=== PATIENT | male | born 1945 | race Caucasian/White ===

== ENCOUNTER 2018-10-13 06:04 | Day surgery (SDC) | payer BC ==
[2018-10-11 09:04] VITALS: BMI 29.6
[2018-10-13] MEDS ORDERED: Levofloxacin 500 mg/D5W 100 ml Premix Bag ONE (06:22)
--- NOTE | 2018-10-13 06:46 | RAD ---
KUB: INDICATIONS: Preop evaluation. COMPARISON: 09/17/2015 FINDINGS: There is bilateral nephrolithiasis. The extent of the renal stone burden has increased from the comp arison examination with numerous nonobstructing calculi involving the right kidney. The largest is s een near the region of the inferior pole, measuring approximately 7 mm. There is a 2 mm stone involv ing the superior pole of the left kidney. An additional suspected 2 mm stone is seen involving the i nferior pole of the left kidney. No suspicious calcification is seen along the expected course of th e renal collecting systems. Small phleboliths within the lower left hemipelvis are stable. The ayden l gas pattern is unobstructed. There is mild dextroscoliosis of the lumbar spine. IMPRESSION: Worsening bilateral nephrolithiasis. POS: BH
[2018-10-13] MEDS ORDERED: Fentanyl 100 MCG/2 ML VIAL ONE (07:18)
[2018-10-13] MEDS ORDERED: Iothalamate Meglumine 60% 50 ML VIAL FS ONE (08:20)
--- NOTE | 2018-10-13 11:00 | OP ---
DATE OF PROCEDURE: 10/13/2018 PREOPERATIVE DIAGNOSES: Right renal and right ureteral stone. POSTOPERATIVE DIAGNOSES: Right renal and bladder stone. PROCEDURES PERFORMED: Right extracorporeal shockwave lithotripsy, cystoscopy, right retrograde, and removal of bladder stone. ANESTHETIC: General. ESTIMATED BLOOD LOSS: Not recorded. FINDINGS: He had multiple stones in his kidneys, the larger one 7 to 8 mm in the lower pole was treated with about 2200 shocks and 300 shocks were given to a smaller one in the mid calyceal region. On this preoperative KUB, the right lower 3rd ureteral stone was not evident, but on fluoroscopy, we found that was in the bladder. So, after treating the right renal stones, we then did cystoscopy and found the stone and removed it intact and did a retrograde study showing no abnormality to the right ureter. No obstruction to the right ureter. DESCRIPTION OF PROCEDURE: After obtaining written and verbal consent from the patient documenting normal blood work and reviewing his preoperative KUB and after receiving IV Levaquin, he was taken to the operating suite. He was placed in the supine position on the treatment table. PlexiPulses were placed on his lower extremities and turned on. He was given a general anesthetic and oral obturator intubation. He was coupled to the lithotripsy unit. The stone was placed in treatment focal point. Shockwave therapy was commenced at a slow rate and a slow kV. After a couple of 100 shocks, a pause of 5 minutes was given. We then increased the rate up to level 4 and then for the last few 100 shocks alternate level 4, level 5 at 100 shocks each. At about 2200 shocks, we could not see any further stone in this region, so we did treat one of the other stones that was in the mid calyceal region with remaining 300 shocks. At this point, he was placed in the dorsal lithotomy position and sterilely prepped and draped for cystoscopy. This was done with a 22-[place] sheath and we used a 25-[place] sheath to be able to get this stone out of the bladder. The bladder was inspected with both the 30-degree and 70-degree lens. There was no evidence of urethral stricture. There was moderate to large prostatic lobes with a rather prominent median lobe. The bladder had a stone in it, but there was no tumor or foreign body or fistula. There were 2 ureteral orifices. Retrograde study was done with a 5-[place] Pollack catheter that was flushed with contrast and then injected up the right side that showed no evidence of any filling defects or obstruction to the right ureter. The bladder stone was grasped with a pair of alligator forceps and removed intact with the aid of a 25-[place] sheath. We did not place a catheter. The patient was taken out of the dorsal lithotomy position, awakened, extubated, taken by stretcher to recovery room. Job ID: [id number]
[2018-10-13] MEDS ORDERED: Dexamethasone 20 MG/5 ML VIAL ONE (16:03)
[2018-10-13] MEDS ORDERED: Ondansetron PF 4 MG/2 ML Vial ONE (16:03)
[2018-10-13] MEDS ORDERED: PROPOFOL 200 MG/20 ML VIAL ONE (16:03)
[2018-10-13] MEDS ORDERED: Lidocaine 1% PF 5 ML VIAL ONE (16:03)
== END 2018-10-13 11:46 | disposition home or self-care (01) ==
LOC: SDC 06:04
PROVIDERS: ATTEND Urology
PROC: 0TF3XZZ Fragmentation in Right Kidney Pelvis, External Approach (ICD-10-PCS; principal; 2018-10-13)
PROC: 0TCB8ZZ Extirpation of Matter from Bladder, Via Natural or Artificial Opening Endoscopic (ICD-10-PCS; principal; 2018-10-13)
DX: N20.0 Calculus of kidney (principal); N21.0 Calculus in bladder; Z79.899 Other long term (current) drug therapy
CPT/HCPCS: 74018; J1100; J1956; J2001; J2405; J2704; J3010

== ENCOUNTER 2018-11-07 17:01 | Emergency (ER) | payer BC ==
[2018-11-07] MEDS ORDERED: Ibuprofen 600 MG TAB ONE (17:20)
--- NOTE | 2018-11-07 17:34 | RAD ---
3 views of the left wrist: 11/07/2018 COMPARISON: None HISTORY: Fall, wrist injury FINDINGS: There is a nondisplaced transverse fracture at the base of the ulnar styloid. There is a co mminuted impacted distal left radial fracture with extension into the radiocarpal and distal radioulnar joint. There is mild anterior displacement of distal radial fracture fragments. No evidenc e for dislocation. There is degenerative change at the first carpometacarpal joint. Orthopedic consultation advised. IMPRESSION: Comminuted impacted intra-articular fracture of the distal left radius with an associated fracture at the base of the ulnar styloid.
== END 2018-11-07 18:23 | disposition home or self-care (01) ==
LOC: SCSER 17:01
DX: S52.572A Other intraarticular fracture of lower end of left radius, initial encounter for closed fracture (principal); S52.612A Displaced fracture of left ulna styloid process, initial encounter for closed fracture; E78.5 Hyperlipidemia, unspecified; E78.00 Pure hypercholesterolemia, unspecified; Z87.442 Personal history of urinary calculi; W17.89XA Other fall from one level to another, initial encounter
CPT/HCPCS: 29125

== ENCOUNTER 2018-11-10 09:27 | Day surgery (SDC) | payer BC ==
[2018-11-09 12:46] VITALS: BMI 28.1
[2018-11-10] MEDS ORDERED: Fentanyl 100 MCG/2 ML VIAL ONE ×2 (10:31→10:57)
--- NOTE | 2018-11-10 13:32 | RAD ---
TWO VIEWS OF THE LEFT WRIST: COMPARISON: 11/07/2018. HISTORY: Distal radius fracture status post ORIF. FINDINGS/IMPRESSION: Two limited intraoperative fluoroscopic views of the left wrist show the patient to be plate and scre w fixation of the distal radius fracture. An associated ulnar styloid fracture is seen. POS: TPC
--- NOTE | 2018-11-10 18:08 | OP ---
DATE OF PROCEDURE: 11/10/2018 OPERATION PERFORMED: Open reduction and internal fixation of left distal radius fracture. PREOPERATIVE DIAGNOSIS: Intra-articular left distal radius fracture with displacement. POSTOPERATIVE DIAGNOSIS: Intra-articular left distal radius fracture with displacement. COMPLICATIONS: None. ESTIMATED BLOOD LOSS: 50 mL. DIRECTOR ELECTRONICS: Jake Garcia. IMPLANT: Synthes volar distal radial plate with multiple locking and nonlocking screws. INDICATIONS: The patient fell and fractured his distal radius with shortening and displacement. He was indicated for open reduction and internal fixation of the distal radius to restore anatomic alignment and promote healing. Risks have been reviewed and he has elected to proceed with the operation. DESCRIPTION OF PROCEDURE: Mr. Huston was identified in the preoperative holding area. His correct extremity was marked. He was carried to the operating room. He was positioned supine. General anesthesia was induced. The left upper extremity was prepped and draped in sterile fashion. He was given intravenous antibiotics. At this point, we began the procedure with an FCR approach to the distal radius. We made an incision over the volar wrist, dissecting down to the FCR tendon sheath, which was opened. We then cleared the underlying pronator quadratus from the bone. We then identified the fracture site and cleared the soft tissues. We thoroughly irrigated. We then pulled length and reduced the fracture back into its anatomic position with a reduction clamp and K-wire. Next, we applied our volar distal radial plate. We placed a screw proximally as well as multiple locking screws distally. We finally placed our proximal screws. We took x-ray images, confirming plate placement and reduction. There were no complications. At this point, we thoroughly irrigated. We then closed in layers and placed a splint. The patient was taken to the recovery room in good condition. Job ID: [id number]
== END 2018-11-10 14:25 | disposition home or self-care (01) ==
LOC: SDC 09:27
PROVIDERS: ATTEND Orthopaedic Surgery
PROC: 3E0T3BZ Introduction of Anesthetic Agent into Peripheral Nerves and Plexi, Percutaneous Approach (ICD-10-PCS; principal; 2018-11-10)
PROC: 0PSJ04Z Reposition Left Radius with Internal Fixation Device, Open Approach (ICD-10-PCS; principal; 2018-11-10)
DX: S52.532A Colles' fracture of left radius, initial encounter for closed fracture (principal); Z79.899 Other long term (current) drug therapy; W01.0XXA Fall on same level from slipping, tripping and stumbling without subsequent striking against object, initial encounter
CPT/HCPCS: 76000; J0690; J3010

== ENCOUNTER 2021-11-21 09:07 | Outpatient (CLI) | payer MEDICARE, OTHER ==
[2021-11-21 10:23] LABS: Hemoglobin 14.9 g/dL (13.5-17.5); Mean Corpuscular HGB CONC 34.6 g/dL (32.0-36.0); Mean Corpuscular Hemoglobin 31.9 pg (27.0-33.0); Mean Corpuscular Volume 92.3 fl (81.2-95.1); Mean Platelet Volume 12.6 fl (7.4-10.4); Platelet Count 128 10x3/uL (150-450); Red Blood Cell (RBC) Count 4.67 10x6/uL (4.32-5.72); White Blood Cell (WBC) Count 5.5 10x3/uL (3.5-10.5)
[2021-11-21 10:36] LABS: Prothrombin Time 10.9 sec (9.5-12.1)
[2021-11-21 10:40] LABS: Anion Gap 14 mmol/L (10-20); BUN (Urea Nitrogen) 17 mg/dL (8.4-25.7); Calc. Creatinine Clearance 0 mL/min (70-130); Calcium 9.3 mg/dL (7.8-10.44); Carbon Dioxide 22 mmol/L (23-31); Chloride 107 mmol/L (98-107); Estimated GFR 87; Glucose 102 mg/dL (83-110); Potassium 4.3 mmol/L (3.5-5.1); Sodium 139 mmol/L (136-145)
== END 2021-11-21 09:08 | disposition home or self-care (01) ==
LOC: LABBT 09:07
PROVIDERS: ATTEND Urology
DX: Z01.812 Encounter for preprocedural laboratory examination (principal)
CPT/HCPCS: 80048; 85027; 85610; 85730; 87086

== ENCOUNTER 2021-11-25 06:26 | Day surgery (SDC) | payer MEDICARE, OTHER ==
[2021-11-21 11:15] VITALS: BMI 26.6
[2021-11-25] MEDS ORDERED: Iopamidol 0 ML ONE (08:38)
[2021-11-25] MEDS ORDERED: SUGAMMADEX SODIUM 200 MG/2 ML VIAL ONE (08:44)
[2021-11-25] MEDS ORDERED: fentaNYL Citrate/PF 100 MCG/2 ML SYRINGE ONE (08:44)
[2021-11-25] MEDS ORDERED: Sodium Chloride 0.9% 100 ML ONE (08:48)
[2021-11-25] MEDS ORDERED: CEFAZOLIN 2 GM VIAL ONE (08:48)
[2021-11-25] MEDS ORDERED: PROPOFOL 200 MG/20 ML VIAL ONE (09:01)
[2021-11-25] MEDS ORDERED: Ketorolac Tromethamine 30 MG/ML VIAL ONE (09:01)
[2021-11-25] MEDS ORDERED: Lidocaine 1% PF 5 ML VIAL ONE (09:01)
[2021-11-25] MEDS ORDERED: ePHEDrine 50 MG/ML VIAL ONE (09:01)
[2021-11-25] MEDS ORDERED: Dexamethasone 20 MG/5 ML VIAL ONE (09:01)
[2021-11-25] MEDS ORDERED: Ondansetron PF 4 MG/2 ML Vial ONE (09:01)
[2021-11-25] MEDS ORDERED: Rocuronium Bromide 10 MG/ML (10ML VIAL) ONE (09:01)
[2021-11-29 13:12] LABS: CA Oxalate Monohydrate 100 % (.); Color Brown (.); Stone Weight 414 mg (.)
== END 2021-11-25 11:34 | disposition home or self-care (01) ==
LOC: SDC 06:26
PROVIDERS: ATTEND Urology
PROC: 0TCB8ZZ Extirpation of Matter from Bladder, Via Natural or Artificial Opening Endoscopic (ICD-10-PCS; principal; 2021-11-25)
DX: N21.0 Calculus in bladder (principal); K21.9 Gastro-esophageal reflux disease without esophagitis; E78.00 Pure hypercholesterolemia, unspecified; Z79.899 Other long term (current) drug therapy; Z98.890 Other specified postprocedural states
CPT/HCPCS: 82365; 88300; J0690; J1100; J1885; J2405; J2704; J3490; Q9967

== ENCOUNTER 2023-02-05 16:36 | Inpatient (IN) | payer MEDICARE ==
[2023-02-05 18:04] VITALS: BMI 27.9
[2023-02-05] MEDS ORDERED: Nitroglycerin 0.4 MG TAB (25 Tab Bottle) SL PRN (18:31)
[2023-02-05] MEDS ORDERED: Acetaminophen 325 MG TAB PO PRN (18:31)
[2023-02-05] MEDS ORDERED: Ondansetron PF 4 MG/2 ML Vial IVP PRN (18:31)
[2023-02-05] MEDS ORDERED: HYDROcodone/Acetaminophen 5/325 mg Tablet PO PRN (18:31)
[2023-02-05] MEDS ORDERED: Isosorbide Mononitrate 30 MG ER.TAB PO SCH (18:45)
[2023-02-05 19:44] LABS: Troponin I Less than 0.010 ng/mL (< 0.028)
[2023-02-05] MEDS: Tamsulosin HCl 0.4 MG CAP PO SCH (19:50)
[2023-02-05 22:01] LABS: Troponin I Less than 0.010 ng/mL (< 0.028)
[2023-02-06 04:49] LABS: #Eosinphils 0.2 thou/uL (0.0-0.7); #Monocytes 0.5 thou/uL (0.11-0.59); #Neutrophils 4.2 thou/uL (1.40-6.50); %Basophils 0.3 % (0.0-1.0); %Eosinophils 2.3 % (0.0-10.0); %Lymphocytes 26.1 % (21.0-51.0); %Monocytes 7.6 % (0.0-10.0); %Neutrophils 63.5 % (42.0-75.0); Hematocrit 39.9 % (42.0-52.0); Hemoglobin 13.7 g/dL (14.0-18.0); Mean Corpuscular HGB CONC 34.3 g/dL (32.0-36.0); Mean Corpuscular Hemoglobin 32.3 pg (27.0-31.0); Mean Corpuscular Volume 94.1 fl (78.0-98.0); Platelet Count 107 10x3/uL (130-400); RBC Distribution Width 12.9 % (11.5-14.5); Red Blood Cell (RBC) Count 4.24 mill/uL (4.70-6.10); White Blood Cell (WBC) Count 6.6 10x3/uL (4.8-10.8)
[2023-02-06 05:25] LABS: Anion Gap 10 mmol/L (10-20); BUN (Urea Nitrogen) 14 mg/dL (8.4-25.7); Calc. Creatinine Clearance 72 mL/min (70-130); Calcium 8.9 mg/dL (7.8-10.44); Carbon Dioxide 25 mmol/L (23-31); Chloride 108 mmol/L (98-107); Cholesterol 118 mg/dl (< 200 Desired); Estimated GFR 75; Glucose 108 mg/dL (83-110); HDL Cholesterol 40 mg/dL (>60 Neg Risk); LDL Cholesterol, Calculated 54 mg/dL; Potassium 3.9 mmol/L (3.5-5.1); Sodium 139 mmol/L (136-145); Triglycerides 120 mg/dL (Less than 150)
[2023-02-06] MEDS: Aspirin Chewable 81 MG TAB PO SCH (09:06)
[2023-02-06] MEDS: Atorvastatin Calcium 10 MG TAB PO SCH (09:06)
[2023-02-06] MEDS: Isosorbide Mononitrate 30 MG ER.TAB PO SCH (09:06)
[2023-02-06] MEDS ORDERED: ADENOSINE 60 MG/20 ML SDV ONE (11:31)
[2023-02-06] MEDS ORDERED: Communication Order-Pharmacy FS SCH (15:30)
[2023-02-06] MEDS: Tamsulosin HCl 0.4 MG CAP PO SCH (20:48)
[2023-02-07] MEDS: Atorvastatin Calcium 10 MG TAB PO SCH (06:00)
[2023-02-07] MEDS: Aspirin Chewable 81 MG TAB PO SCH (06:00)
[2023-02-07] MEDS: Sodium Chloride 0.9% 1,000 ML IV SCH ×2 (06:00→11:39)
[2023-02-07] MEDS ORDERED: Heparin 10,000 UNITS/ 10 ML VIAL ONE (07:44)
[2023-02-07] MEDS ORDERED: Verapamil 5 MG/2 ML VIAL ONE (07:44)
[2023-02-07] MEDS: Isosorbide Mononitrate 30 MG ER.TAB PO SCH (07:44)
[2023-02-07] MEDS ORDERED: Nitroglycerin 50 MG/250 ML BOT 250 ML ONE (07:45)
[2023-02-07] MEDS ORDERED: Midazolam HCl 2 mg/2 ml Vial ONE (09:01)
[2023-02-07] MEDS ORDERED: fentaNYL 50 mcg/mL 1 mL Vial ONE (09:01)
[2023-02-07 10:15] VITALS: TEMP 97.7
[2023-02-07 16:34] VITALS: BP 145/77
== END 2023-02-07 17:16 | disposition home or self-care (01) | DRG 287 ==
LOC: INTOOBSV 17:16 → 2SW 17:16 → OBSVTOIN 02-06 14:51
PROVIDERS: ADMIT Internal Medicine; ATTEND Internal Medicine
PROC: 4A023N7 Measurement of Cardiac Sampling and Pressure, Left Heart, Percutaneous Approach (ICD-10-PCS; principal; 2023-02-06)
PROC: B2111ZZ Fluoroscopy of Multiple Coronary Arteries using Low Osmolar Contrast (ICD-10-PCS; 2023-02-06)
PROC: B2151ZZ Fluoroscopy of Left Heart using Low Osmolar Contrast (ICD-10-PCS; 2023-02-06)
DX: I20.89 Other forms of angina pectoris (principal); E78.5 Hyperlipidemia, unspecified; N40.0 Benign prostatic hyperplasia without lower urinary tract symptoms; K21.9 Gastro-esophageal reflux disease without esophagitis; Z79.899 Other long term (current) drug therapy; Z82.49 Family history of ischemic heart disease and other diseases of the circulatory system; Z79.82 Long term (current) use of aspirin
CPT/HCPCS: 36415; 71045; 78452; 80048; 80053; 80061; 83690; 83880; 84484; 85025; 85379; 93005; 93017; 93306; 94760; A9502; C1769; C1894; G0378; J0153; J1644; J2250; J3010; J7050

== ENCOUNTER 2024-01-11 12:42 | Outpatient (CLI) | payer MEDICARE ==
[2024-01-11 14:02] LABS: #Basophils Less than 0.03 10x3/uL (0.0-0.2); %Basophils 0.3 % (0.0-1.0); %Eosinophils 1.1 % (0.0-10.0); %Lymphocytes 27.6 % (21.0-51.0); %Monocytes 6.9 % (0.0-10.0); %Neutrophils 63.8 % (42.0-75.0); Hematocrit 45.9 % (42.0-52.0); Mean Corpuscular HGB CONC 34.9 g/dL (32.0-36.0); Mean Corpuscular Hemoglobin 32.6 pg (27.0-31.0); Mean Corpuscular Volume 93.5 fL (78.0-98.0); Platelet Count 148 10x3/uL (130-400); RBC Distribution Width 13.2 % (11.5-14.5); Red Blood Cell (RBC) Count 4.91 mill/uL (4.70-6.10)
[2024-01-11 14:12] LABS: Prothrombin Time 13.3 sec (12.0-14.7)
[2024-01-11 14:13] LABS: PTT 36.5 sec (22.9-36.1)
[2024-01-11 14:21] LABS: Anion Gap 14 mmol/L (10-20); BUN (Urea Nitrogen) 14 mg/dL (8.4-25.7); Calc. Creatinine Clearance 0 mL/min (70-130); Calcium 9.6 mg/dL (7.8-10.44); Carbon Dioxide 22 mmol/L (23-31); Chloride 106 mmol/L (98-107); Estimated GFR 83; Glucose 103 mg/dL (83-110); Sodium 138 mmol/L (136-145)
== END 2024-01-11 12:43 | disposition home or self-care (01) ==
LOC: LABBT 12:42
PROVIDERS: ATTEND Urology
DX: Z01.812 Encounter for preprocedural laboratory examination (principal); N21.0 Calculus in bladder
CPT/HCPCS: 80048; 85025; 85610; 85730; 87086

== ENCOUNTER 2024-01-19 07:06 | Day surgery (SDC) | payer MEDICARE ==
[2024-01-11 13:00] VITALS: BMI 27.6
[2024-01-19] MEDS ORDERED: PROPOFOL 20 ML ONE (09:09)
[2024-01-19] MEDS ORDERED: Lidocaine 2% PF 5 ML VIAL ONE (09:09)
[2024-01-19] MEDS ORDERED: fentaNYL PF 100 MCG/2 ML SYRINGE ONE (10:45)
[2024-01-19] MEDS ORDERED: CEFAZOLIN 2 GM VIAL ONE (10:46)
[2024-01-19] MEDS ORDERED: Ondansetron PF 4 MG/2 ML Vial ONE (11:03)
[2024-01-19] MEDS ORDERED: Dexamethasone 4 mg/ml Vial ONE (11:03)
[2024-01-19] MEDS ORDERED: ePHEDrine Sulfate 50 MG/10 ML VIAL ONE (11:08)
[2024-01-22 12:17] LABS: CA Oxalate Monohydrate 100 % (.); Color Brown (.); Stone Weight 163 mg (.)
== END 2024-01-19 14:24 | disposition home or self-care (01) ==
LOC: SDC 07:06
PROVIDERS: ATTEND Urology
PROC: 0TCB8ZZ Extirpation of Matter from Bladder, Via Natural or Artificial Opening Endoscopic (ICD-10-PCS; principal; 2024-01-19)
DX: N21.0 Calculus in bladder (principal); K21.9 Gastro-esophageal reflux disease without esophagitis; E78.00 Pure hypercholesterolemia, unspecified; Z79.899 Other long term (current) drug therapy
CPT/HCPCS: 52310; 82365; J1100; J2405; J2704; 88300

== ENCOUNTER 2024-09-14 13:28 | Inpatient (IN) | payer MEDICARE ==
[2024-09-14] MEDS ORDERED: Ondansetron PF 4 MG/2 ML Vial ONE (14:41)
[2024-09-14 14:52] LABS: #Basophils 0.03 10x3/uL (0.0-0.2); #Eosinophils Less than 0.03 10x3/uL (0.0-0.7); #Monocytes 0.59 10x3/uL (0.11-0.59); #Neutrophils 12.42 10x3/uL (1.40-6.50); %Basophils 0.2 % (0.0-1.0); %Eosinophils 0.0 % (0.0-10.0); %Lymphocytes 5.5 % (21.0-51.0); %Monocytes 4.3 % (0.0-10.0); %Neutrophils 89.5 % (42.0-75.0); Hematocrit 45.5 % (42.0-52.0); Hemoglobin 15.2 g/dL (14.0-18.0); Mean Corpuscular Hemoglobin 30.8 pg (27.0-31.0); Mean Corpuscular Volume 92.3 fL (78.0-98.0); Platelet Count 184 10x3/uL (130-400); Red Blood Cell (RBC) Count 4.93 mill/uL (4.70-6.10); White Blood Cell (WBC) Count 13.87 10x3/uL (4.8-10.8)
[2024-09-14 15:06] LABS: ALT (SGPT) 25 U/L (Less than 45); AST (SGOT) 30 U/L (11-34); Albumin 4.3 g/dL (3.1-4.5); Alkaline Phosphatase 73 U/L (40-110); Anion Gap 13 mmol/L (10-20); BUN (Urea Nitrogen) 17 mg/dL (8.4-25.7); Bilirubin, Total 0.8 mg/dL (0.3-1.2); Calc. Creatinine Clearance 0 mL/min (70-130); Calcium 9.9 mg/dL (7.8-10.44); Carbon Dioxide 19 mmol/L (23-31); Chloride 108 mmol/L (98-107); Globulin 3.4 g/dL (2.4-3.5); Glucose 121 mg/dL (83-110); Potassium 4.3 mmol/L (3.5-5.1); Sodium 136 mmol/L (136-145)
[2024-09-14 15:09] LABS: CAUTI Indications for Culture Dysuria,urgency,freq; Glucose, Urine (Dipstick) Normal (Negative); Leukocyte Negative Leu/uL (Negative); Protein, Urine (Dipstick) 20 mg/dL (Neg-Trace); RBC/HPF Greater than 50 HPF (0-3); Specific Gravity, Urine 1.024 (1.002-1.036); Yeast-Budding 1+ HPF (None Seen)
[2024-09-14 15:10] LABS: Bacteria/HPF 1+ HPF (None Seen)
[2024-09-14 15:12] LABS: Urine Culture Reflex No No
[2024-09-14] MEDS ORDERED: Ketorolac Tromethamine 30 MG (1 mL) VIAL ONE (16:13)
[2024-09-14] MEDS ORDERED: Sulfameth/Trimethoprim DS 800-160mg TAB ONE (16:39)
[2024-09-14] MEDS ORDERED: oxyCODONE 5 MG TAB PO PRN (18:50)
[2024-09-14] MEDS ORDERED: Fluconazole 100 MG TAB PO SCH (19:00)
[2024-09-14] MEDS ORDERED: cefTRIAXone\\ROCEPHIN 1 GM in Sodium Chloride 0.9% 100 ML IVPB SCH (22:15)
[2024-09-15] VITALS: BMI 26.1
[2024-09-15] MEDS: Acetaminophen 500 MG TAB PO SCH (00:07)
[2024-09-15] MEDS: Ondansetron PF 4 MG/2 ML Vial IVP PRN (03:30)
[2024-09-15 06:02] LABS: #Basophils Less than 0.03 10x3/uL (0.0-0.2); #Eosinophils 0.06 10x3/uL (0.0-0.7); #Monocytes 0.69 10x3/uL (0.11-0.59); #Neutrophils 7.24 10x3/uL (1.40-6.50); %Basophils 0.2 % (0.0-1.0); %Eosinophils 0.7 % (0.0-10.0); %Lymphocytes 12.0 % (21.0-51.0); %Monocytes 7.5 % (0.0-10.0); %Neutrophils 79.3 % (42.0-75.0); Hematocrit 39.6 % (42.0-52.0); Hemoglobin 13.3 g/dL (14.0-18.0); Mean Corpuscular Hemoglobin 31.1 pg (27.0-31.0); Mean Corpuscular Volume 92.5 fL (78.0-98.0); Platelet Count 162 10x3/uL (130-400); Red Blood Cell (RBC) Count 4.28 mill/uL (4.70-6.10); White Blood Cell (WBC) Count 9.14 10x3/uL (4.8-10.8)
[2024-09-15 06:16] LABS: Anion Gap 12 mmol/L (10-20); BUN (Urea Nitrogen) 24 mg/dL (8.4-25.7); Calc. Creatinine Clearance 42 mL/min (70-130); Calcium 8.7 mg/dL (7.8-10.44); Carbon Dioxide 21 mmol/L (23-31); Chloride 108 mmol/L (98-107); Glucose 107 mg/dL (83-110); Potassium 4.4 mmol/L (3.5-5.1); Sodium 137 mmol/L (136-145)
[2024-09-15] MEDS: Sulfameth/Trimethoprim DS 800-160mg TAB PO SCH (08:25)
[2024-09-15] MEDS: Pantoprazole 40 MG DR.TAB PO SCH (08:25)
[2024-09-15] MEDS: Enoxaparin 40 MG (0.4 mL) SYRINGE SC SCH (09:05)
[2024-09-15] MEDS ORDERED: HYDROcodone/Acetaminophen 5/325 mg Tablet PO PRN (10:18)
[2024-09-15] MEDS ORDERED: cefTRIAXone (ROCEPHIN) 1 GM VIAL ONE (12:44)
[2024-09-15] MEDS ORDERED: Famotidine/PF 20 mg/2ml Vial ONE (13:02)
[2024-09-15] MEDS ORDERED: Ondansetron PF 4 MG/2 ML Vial ONE ×2 (13:02→13:58)
[2024-09-15] MEDS ORDERED: PROPOFOL 20 ML ONE (13:22)
[2024-09-15] MEDS ORDERED: Rocuronium Bromide 10 MG/ML (10ML VIAL) ONE (13:22)
[2024-09-15] MEDS ORDERED: SUGAMMADEX SODIUM 200 MG/2 ML VIAL ONE (14:01)
[2024-09-15] MEDS ORDERED: PHENYLEPHRINE-NS 100 MCG/ML 10 ML SYRINGE ONE (14:02)
[2024-09-16 05:50] LABS: #Basophils Less than 0.03 10x3/uL (0.0-0.2); #Eosinophils Less than 0.03 10x3/uL (0.0-0.7); #Monocytes 0.41 10x3/uL (0.11-0.59); #Neutrophils 8.01 10x3/uL (1.40-6.50); %Basophils 0.0 % (0.0-1.0); %Eosinophils 0.0 % (0.0-10.0); %Lymphocytes 9.2 % (21.0-51.0); %Monocytes 4.4 % (0.0-10.0); %Neutrophils 85.9 % (42.0-75.0); Hematocrit 37.6 % (42.0-52.0); Hemoglobin 12.6 g/dL (14.0-18.0); Mean Corpuscular Hemoglobin 31.1 pg (27.0-31.0); Mean Corpuscular Volume 92.8 fL (78.0-98.0); Platelet Count 151 10x3/uL (130-400); Red Blood Cell (RBC) Count 4.05 mill/uL (4.70-6.10); White Blood Cell (WBC) Count 9.33 10x3/uL (4.8-10.8)
[2024-09-16 06:05] LABS: Anion Gap 13 mmol/L (10-20); BUN (Urea Nitrogen) 19 mg/dL (8.4-25.7); Calc. Creatinine Clearance 53 mL/min (70-130); Calcium 9.0 mg/dL (7.8-10.44); Carbon Dioxide 18 mmol/L (23-31); Chloride 110 mmol/L (98-107); Glucose 122 mg/dL (83-110); Potassium 4.9 mmol/L (3.5-5.1); Sodium 136 mmol/L (136-145)
[2024-09-16 07:59] VITALS: BP 141/78; TEMP 98.3
[2024-09-16] MEDS: Cholecalciferol 1,000 UNITS (25 MCG) TAB PO SCH (08:40)
[2024-09-16] MEDS: Multivit, Therapeutic 1 TAB PO SCH (08:40)
[2024-09-16] MEDS: CO Q-10 CAPSULE 50 MG PO SCH (08:40)
== END 2024-09-16 11:05 | disposition home or self-care (01) | DRG 660 ==
LOC: ERS 13:28 → SURG A 18:11 → OBSVTOIN 09-15 16:58
PROVIDERS: ADMIT Hospitalist; ATTEND Internal Medicine
DX: N20.0 Calculus of kidney (principal); N17.9 Acute kidney failure, unspecified; N39.0 Urinary tract infection, site not specified; N13.5 Crossing vessel and stricture of ureter without hydronephrosis; B37.9 Candidiasis, unspecified; R03.0 Elevated blood-pressure reading, without diagnosis of hypertension; E78.5 Hyperlipidemia, unspecified; Z79.899 Other long term (current) drug therapy
CPT/HCPCS: 36415; 74176; 80048; 80053; 81001; 82365; 83605; 85025; 87086; 88300; 96374; 96375; 96376; C1769; C2617; G0378; J0696; J1100; J1308; J1650; J1885; J2405; J2704; J3010; J7120

== ENCOUNTER 2024-09-22 12:33 | Emergency (ER) | payer MEDICARE ==
[2024-09-22] MEDS ORDERED: Acetaminophen 500 MG TAB ONE (13:06)
[2024-09-22] MEDS ORDERED: Cefepime 2 GM VIAL ONE (13:23)
[2024-09-22] MEDS ORDERED: Vancomycin 1.5 GM / NS 500ML VIAL-2-BAG IVPB SCH (13:45)
[2024-09-22 13:46] LABS: ALT (SGPT) 25 U/L (Less than 45); AST (SGOT) 34 U/L (11-34); Albumin 3.7 g/dL (3.1-4.5); Alkaline Phosphatase 69 U/L (40-110); Anion Gap 14 mmol/L (10-20); BUN (Urea Nitrogen) 19 mg/dL (8.4-25.7); Bilirubin, Total 0.5 mg/dL (0.3-1.2); Calc. Creatinine Clearance 0 mL/min (70-130); Calcium 8.8 mg/dL (7.8-10.44); Carbon Dioxide 19 mmol/L (23-31); Chloride 101 mmol/L (98-107); Globulin 3.4 g/dL (2.4-3.5); Glucose 116 mg/dL (83-110); Potassium 4.0 mmol/L (3.5-5.1); Sodium 130 mmol/L (136-145)
[2024-09-22 14:02] LABS: Actual Bicarbonate (HCO3v) 17.4 mEq/L (22-28); Analyzer IN Cardio ER; Base Excess -4.4 mEq/L (-2.0 to +3.0); Calcium, Ionized (venous) 1.10 mmol/L (1.16-1.32); Chloride (VBG) 100 mmol/L (98-106); Hematocrit-VBG 40 % (42.0-52.0); Hemoglobin (Hb) 13.5 g/dL (12.6-17.4); Potassium (VBG) 3.99 mmol/L (3.70-5.30); Sodium 132 mmol/L (133-146)
[2024-09-22 14:13] LABS: #Basophils Less than 0.03 10x3/uL (0.0-0.2); #Eosinophils Less than 0.03 10x3/uL (0.0-0.7); #Monocytes 0.56 10x3/uL (0.11-0.59); #Neutrophils 4.48 10x3/uL (1.40-6.50); %Basophils 0.4 % (0.0-1.0); %Eosinophils 0.4 % (0.0-10.0); %Lymphocytes 10.5 % (21.0-51.0); %Monocytes 9.8 % (0.0-10.0); %Neutrophils 78.5 % (42.0-75.0); Hematocrit 41.1 % (42.0-52.0); Hemoglobin 14.0 g/dL (14.0-18.0); Mean Corpuscular Hemoglobin 31.1 pg (27.0-31.0); Mean Corpuscular Volume 91.3 fL (78.0-98.0); Platelet Count 97 10x3/uL (130-400); Red Blood Cell (RBC) Count 4.50 mill/uL (4.70-6.10); White Blood Cell (WBC) Count 5.70 10x3/uL (4.8-10.8)
[2024-09-22 14:49] LABS: Platelet Adequacy Comment Platelets Decreased; RBC Morphology Within Normal Limits
[2024-09-22 14:53] LABS: CAUTI Indications for Culture Dysuria,urgency,freq; Glucose, Urine (Dipstick) Normal (Negative); Leukocyte 25 Leu/uL (Negative); Protein, Urine (Dipstick) 70 mg/dL (Neg-Trace); RBC/HPF Greater than 50 HPF (0-3); Specific Gravity, Urine 1.022 (1.002-1.036)
[2024-09-22 14:54] LABS: Bacteria/HPF 1+ HPF (None Seen)
[2024-09-22 14:55] LABS: Urine Culture Reflex No No
== END 2024-09-22 17:11 | disposition home or self-care (01) ==
LOC: ERS 12:33
DX: R50.9 Fever, unspecified (principal); E78.5 Hyperlipidemia, unspecified; Z79.899 Other long term (current) drug therapy
CPT/HCPCS: 71045; 80053; 81001; 82805; 83605; 85025; 87040; 87086; 87426; 94760; J0692; J7030; 36415; 96361; 96365; 96366; 96375

== ENCOUNTER 2024-10-03 10:18 | Outpatient (CLI) | payer MEDICARE ==
[2024-10-03 11:08] LABS: #Basophils 0.03 10x3/uL (0.0-0.2); #Eosinophils 0.13 10x3/uL (0.0-0.7); #Monocytes 0.48 10x3/uL (0.11-0.59); #Neutrophils 3.43 10x3/uL (1.40-6.50); %Basophils 0.5 % (0.0-1.0); %Eosinophils 2.3 % (0.0-10.0); %Lymphocytes 26.8 % (21.0-51.0); %Monocytes 8.6 % (0.0-10.0); %Neutrophils 61.3 % (42.0-75.0); Hematocrit 39.6 % (42.0-52.0); Hemoglobin 13.0 g/dL (14.0-18.0); Mean Corpuscular Hemoglobin 31.2 pg (27.0-31.0); Mean Corpuscular Volume 95.0 fL (78.0-98.0); Platelet Count 242 10x3/uL (130-400); Red Blood Cell (RBC) Count 4.17 mill/uL (4.70-6.10); White Blood Cell (WBC) Count 5.60 10x3/uL (4.8-10.8)
[2024-10-03 11:26] LABS: Anion Gap 13 mmol/L (10-20); BUN (Urea Nitrogen) 15 mg/dL (8.4-25.7); Calc. Creatinine Clearance 0 mL/min (70-130); Calcium 9.3 mg/dL (7.8-10.44); Carbon Dioxide 27 mmol/L (23-31); Chloride 108 mmol/L (98-107); Glucose 94 mg/dL (83-110); Potassium 3.9 mmol/L (3.5-5.1); Sodium 144 mmol/L (136-145)
== END 2024-10-03 10:19 | disposition home or self-care (01) ==
LOC: LABBT 10:18
PROVIDERS: ATTEND Urology
DX: Z01.812 Encounter for preprocedural laboratory examination (principal); N20.1 Calculus of ureter
CPT/HCPCS: 80048; 85025; 87086

== ENCOUNTER 2024-10-10 08:28 | Day surgery (SDC) | payer MEDICARE ==
[2024-10-03 10:27] VITALS: BMI 25.0
[2024-10-10] MEDS ORDERED: cefTRIAXone (ROCEPHIN) 2 GM VIAL ONE (09:08)
[2024-10-10] MEDS ORDERED: PROPOFOL 20 ML ONE (09:40)
[2024-10-10] MEDS ORDERED: Rocuronium Bromide 10 MG/ML (10ML VIAL) ONE (09:41)
[2024-10-10] MEDS ORDERED: Vancomycin 1 GM/200 ML (PREMIX FOIL) BAG ONE (09:43)
[2024-10-10] MEDS ORDERED: fentaNYL PF 100 MCG/2 ML SYRINGE ONE (10:27)
[2024-10-10] MEDS ORDERED: PHENYLEPHRINE-NS 100 MCG/ML 10 ML SYRINGE ONE (11:14)
[2024-10-10] MEDS ORDERED: SUGAMMADEX SODIUM 200 MG/2 ML VIAL ONE (11:34)
[2024-10-10] MEDS ORDERED: Ondansetron PF 4 MG/2 ML Vial ONE (11:34)
== END 2024-10-10 13:40 | disposition home or self-care (01) ==
LOC: SDC 08:28
PROVIDERS: ATTEND Urology
PROC: 0TCB8ZZ Extirpation of Matter from Bladder, Via Natural or Artificial Opening Endoscopic (ICD-10-PCS; principal; 2024-10-10)
PROC: 0TC08ZZ Extirpation of Matter from Right Kidney, Via Natural or Artificial Opening Endoscopic (ICD-10-PCS; 2024-10-10)
DX: N20.0 Calculus of kidney (principal); N21.0 Calculus in bladder
CPT/HCPCS: 52352; 74420; C1758; C1769; J0696; J1100; J2405; J2704; J3372; Q9967